=== PATIENT | female | born 1935 | race African-American/Black ===

== ENCOUNTER 2018-02-26 23:34 | Inpatient (IN) | payer MEDICARE ==
[2018-02-27] MEDS ORDERED: NORMAL SALINE 1000 ML 1,000 ML IV PRN (00:45)
[2018-02-27 01:31] LABS: ABSOLUTE EOSINOPHILS # (AUTO) 0.1 10^3/uL (0.0-0.6); ABSOLUTE LYMPHOCYTES (AUTO) 2.4 10^3/uL (0.5-4.7); ABSOLUTE MONOCYTES (AUTO) 0.5 10^3/uL (0.1-1.4); ABSOLUTE NEUT (AUTO) 2.9 10^3/uL (1.7-8.2); BASOPHILS % (AUTO) 0.7 % (0-2); EOSINOPHILS % (AUTO) 1.1 % (0-6); HEMATOCRIT 23.8 % (36.0-47.0); LYMPHOCYTES % (AUTO) 40.3 % (13-45); MEAN CORPUSCULAR HEMOGLOBIN 29.8 pg (27.0-33.4); MEAN CORPUSCULAR HGB CONC 33.2 g/dL (32.0-36.0); MEAN CORPUSCULAR VOLUME 90 fl (80-97); MONOCYTES % (AUTO) 8.9 % (3-13); PLATELET COUNT 101 10^3/uL (150-450); RED BLOOD COUNT 2.65 10^6/uL (3.72-5.28); RED CELL DISTRIBUTION WIDTH 17.7 % (11.5-14.0); TOTAL CELLS COUNTED % (AUTO) 100 %; WHITE BLOOD COUNT 5.9 10^3/uL (4.0-10.5)
[2018-02-27 01:33] LABS: HEMOGLOBIN 7.9 g/dL (12.0-15.5)
[2018-02-27 01:35] LABS: APPEARANCE,URINE SLIGHTLY-CLOUDY; BILIRUBIN,URINE NEGATIVE (NEGATIVE); COLOR,URINE YELLOW; GLUCOSE, URINE NEGATIVE (NEGATIVE); KETONES,URINE NEGATIVE (NEGATIVE); LEUKOCYTE ESTERASE,URINE SMALL (NEGATIVE); NITRITE,URINE NEGATIVE (NEGATIVE); PROTEIN,URINE NEGATIVE (NEGATIVE); URINE SPECIFIC GRAVITY 1.006; UROBILINOGEN,URINE NEGATIVE mg/dL (<2.0)
[2018-02-27 01:44] LABS: ALANINE AMINOTRANSFERASE 97 U/L (9-52); ALBUMIN 2.8 g/dL (3.5-5.0); ALKALINE PHOSPHATASE 125 U/L (38-126); ANION GAP 11 (5-19); ASPARTATE AMINO TRANSFERASE 176 U/L (14-36); BILIRUBIN,DIRECT 0.8 mg/dL (0.0-0.4); BILIRUBIN,TOTAL 1.2 mg/dL (0.2-1.3); BLOOD UREA NITROGEN 14 mg/dL (7-20); CALCIUM 8.3 mg/dL (8.4-10.2); CARBON DIOXIDE 24 mmol/L (22-30); CHLORIDE 103 mmol/L (98-107); GLUCOSE 142 mg/dL (75-110); POTASSIUM 3.6 mmol/L (3.6-5.0); SODIUM 138.2 mmol/L (137-145); TOTAL PROTEIN 6.9 g/dL (6.3-8.2)
[2018-02-27] MEDS ORDERED: FAMOTIDINE INJ/PF 20 MG/2 ML SDV IV ONE (01:56)
[2018-02-27] MEDS ORDERED: PANTOPRAZOLE SODIUM 40 MG VIAL IV ONE (01:56)
[2018-02-27] MEDS ORDERED: PANTOPRAZOLE SODIUM 40 MG VIAL IV PRN (01:57)
[2018-02-27 02:41] LABS: FREE T4 (FREE THYROXINE) 1.53 ng/dL (0.78-2.19)
[2018-02-27 02:46] LABS: INTERNATIONAL RATION (INR) 1.27; PROTHROMBIN TIME 16.6 SEC (11.4-15.4)
[2018-02-27 02:55] LABS: THYROID STIMULATING HORMONE 3.69 uIU/mL (0.47-4.68)
[2018-02-27] MEDS ORDERED: NORMAL SALINE 250 ML IV PRN ×2 (03:01→03:03)
--- NOTE | 2018-02-27 03:05 | ER Document Report ---
ED General - General Chief Complaint: Near Syncope Stated Complaint: SYNCOPE Time Seen by Provider: 02/27/18 00:29 Mode of Arrival: Ambulatory Information source: Patient, Relative TRAVEL OUTSIDE OF THE [place] IN LAST 30 DAYS: No - HPI Notes: Patient is a 83-year-old female presents to the emergency department with report that she has had a decreased appetite for the last 2 weeks and reports some intermittent abdominal pain episodes and states that she is taken Pepto- Bismol with improvement. She reports that 4 days ago she had vomiting and diarrhea and questions having some hematemesis with vomiting. Since that time she has not vomited and denies any further diarrhea but has noted she is felt faint and lightheaded, especially with ambulation. The patient reports no chest pain or difficulty breathing. The patient denies any focal numbness or weakness or paresthesia. The patient reports no abnormal bleeding or bruising otherwise. The patient is not on anticoagulants. Currently, the patient denies any abdominal pain. - Related Data Allergies/Adverse Reactions: No Known Allergies Allergy (Verified 12/15/14 17:19) Past Medical History - General Information source: Patient - Social History Smoking Status: Never Smoker Frequency of alcohol use: None Drug Abuse: None Lives with: Family Family History: Reviewed & Not Pertinent Patient has suicidal ideation: No Patient has homicidal ideation: No - Past Medical History Cardiac Medical History: Reports: Hx Hypertension Endocrine Medical History: Reports: Hx Diabetes Mellitus Type 2 Renal/ Medical History: Denies: Hx Peritoneal Dialysis - Immunizations Hx Diphtheria, Pertussis, Tetanus Vaccination: No Review of Systems - Review of Systems -: Yes All other systems reviewed and negative Physical Exam - Vital signs Vitals: Temp Pulse Resp BP Pulse Ox 98.5 F 102 H 16 132/69 H 99 02/26/18 23:34 02/26/18 23:34 02/26/18 23:34 02/26/18 23:34 02/26/18 23:34 - Notes Notes: PHYSICAL EXAMINATION: GENERAL: Well-appearing, well-nourished and in no acute distress. HEAD: Atraumatic, normocephalic. EYES: Pupils equal round and reactive to light, extraocular movements intact, conjunctiva are normal. ENT: Nares patent, oropharynx clear without exudates. Moist mucous membranes. NECK: Normal range of motion, supple without lymphadenopathy LUNGS: Breath sounds clear to auscultation bilaterally and equal. No wheezes rales or rhonchi. HEART: Regular rate and rhythm without murmurs ABDOMEN: Soft, nontender, nondistended abdomen. No guarding, no rebound. No masses appreciated. Female : deferred Musculoskeletal: Normal range of motion, no pitting or edema. No cyanosis. NEUROLOGICAL: Cranial nerves grossly intact. Normal speech, normal gait. Normal sensory, motor exams. No cerebellar ataxia. PSYCH: Normal mood, normal affect. SKIN: Warm, Dry, normal turgor, no rashes or lesions noted. Rectal slight bleeding melanotic although the stool is well-formed. Patient's flash heme positive. Course - Re-evaluation Re-evalutation: 02/27/18 03:08 Patient reported her last colonoscopy was 2 years ago and she thinks it was negative. The patient consented to transfusion of blood after discussion of risks alternatives and benefits. Repeat abdominal exam was nontender. Patient initially was given 1 L normal saline after arrival until hemoglobin came back at 7.9. There is a normal BUN to creatinine ratio with well-formed stool, and it is hopeful that the patient's GI bleed is now slowed down. Discussion was undertaken with the patient and her family and they were in agreement with admission for further evaluation and care. Discussion was undertaken with Dr. Moreau and he agreed to admit the patient. - Vital Signs Vital signs: Temp Pulse Resp BP Pulse Ox 98.1 F 102 H 11 L 149/67 H 100 02/27/18 02:51 02/26/18 23:34 02/27/18 02:17 02/27/18 02:17 02/27/18 02:17 - Laboratory Result Diagrams: 02/27/18 01:14 02/27/18 01:14 Laboratory results interpreted by me: 02/27/18 02/27/18 02/27/18 01:14 01:14 01:14 RBC 2.65 L Hgb 7.9 L Hct 23.8 L RDW 17.7 H Plt Count 101 L PT Glucose 142 H Calcium 8.3 L Direct Bilirubin 0.8 H AST 176 H ALT 97 H Albumin 2.8 L Ur Leukocyte Esterase SMALL H 02/27/18 02:18 RBC Hgb Hct RDW Plt Count PT 16.6 H Glucose Calcium Direct Bilirubin AST ALT Albumin Ur Leukocyte Esterase Critical Care Note - Critical Care Note Total time excluding time spent on procedures (mins): 33 Discharge - Discharge Clinical Impression: Near syncope GI bleed Qualifiers: GI bleed type/associated pathology: unspecified gastrointestinal hemorrhage type Qualified Code(s): K92.2 - Gastrointestinal hemorrhage, unspecified Condition: Fair Disposition: ADMITTED INPATIENT Admitting Provider: Lucy Unit Admitted: IMCU Referrals: KINZA MOREAU MD [Primary Care Provider] - Follow up as needed
[2018-02-27] MEDS ORDERED: DEXTROSE 40% GEL 15 GM TUBE PO PRN ×2 (05:07)
[2018-02-27] MEDS ORDERED: DEXTROSE 50%-WATER 25 GM/50 ML DISP.SYRIN IV PRN ×2 (05:07)
[2018-02-27] MEDS ORDERED: GLUCAGON,HUMAN RECOMB 1 MG INJ SUBCUT PRN (05:07)
[2018-02-27] MEDS ORDERED: ONDANSETRON HCL INJ/PF 4 MG/2 ML SDV ONE (06:37)
[2018-02-27] MEDS ORDERED: ONDANSETRON HCL INJ/PF 4 MG/2 ML SDV IV PRN ×2 (07:58→19:44)
--- NOTE | 2018-02-27 08:09 | PDOC H&P ---
History of Present Illness Admission Date/PCP: 02/27/18 03:15 KINZA MOREAU MD Patient complains of: hematemesis History of Present Illness: LILIA FRANCE is a 83 year old female with diabetes gout and hepatitis C who presented a month ago with fatigue and barros. Hct was 32. Aspirin was stopped. She has had 2w of intermittant abdominal pain. 6d ago she had hemetemesis with diarrhea. Now hct24. 1y ago she had colonoscopy. Past Medical History Cardiac Medical History: Reports: Hypertension Pulmonary Medical History: Reports: None EENT Medical History: Reports: None Neurological Medical History: Reports: None Endocrine Medical History: Reports: Diabetes Mellitus Type 2, Obesity Renal/ Medical History: Reports: None Malignancy Medical History: Reports: None GI Medical History: Reports: Hepatitis Musculoskeltal Medical History: Reports: Gout Skin Medical History: Reports: None Psychiatric Medical History: Reports: None Denies: Depression Traumatic Medical History: Reports: None Hematology: Reports: None Infectious Medical History: Reports: Hepatitis C Past Surgical History Past Surgical History: Reports: Other - R cataract Social History Information Source: Office Lives with: Family Smoking Status: Never Smoker Frequency of Alcohol Use: None Hx Recreational Drug Use: No Drugs: None Hx Prescription Drug Abuse: No - Advance Directive Resuscitation Status: Full Code Family History Family History: DM, Malignancy Parental Family History Reviewed: Yes Children Family History Reviewed: Yes Sibling(s) Family History Reviewed.: Yes Medication/Allergy Home Medications: Amlodipine Besylate 5 mg PO DAILY 12/15/14 Allergies/Adverse Reactions: No Known Allergies Allergy (Verified 12/15/14 17:19) Review of Systems Constitutional: PRESENT: anorexia, fatigue. ABSENT: fever(s), headache(s), weight loss Nose, Mouth, and Throat: ABSENT: sore throat Cardiovascular: PRESENT: dyspnea on exertion. ABSENT: chest pain, orthropnea Respiratory: ABSENT: cough Gastrointestinal: PRESENT: abdominal pain, diarrhea, hematemesis, vomiting. ABSENT: coffee ground emesis, constipation, heartburn, hematochezia, melena Genitourinary: ABSENT: dysuria, hematuria Integumentary: ABSENT: rash Physical Exam Vital Signs: Temp Pulse Resp BP Pulse Ox 98.6 F 90 17 145/72 H 100 02/27/18 04:44 02/27/18 04:44 02/27/18 04:44 02/27/18 04:44 02/27/18 04:44 Intake & Output 02/25/18 02/26/18 02/27/18 07:59 07:59 07:59 Weight 176 lb 9.444 oz General appearance: PRESENT: no acute distress Mouth exam: PRESENT: moist, neck supple, tongue midline Neck exam: ABSENT: lymphadenopathy, tenderness, thyromegaly, tracheal deviation Respiratory exam: PRESENT: clear to auscultation antonia Cardiovascular exam: ABSENT: diastolic murmur, irregular rhythm, systolic murmur GI/Abdominal exam: ABSENT: mass, organolmegaly, tenderness Extremities exam: ABSENT: pedal edema Neurological exam: PRESENT: oriented to person, oriented to place, oriented to time, oriented to situation Psychiatric exam: PRESENT: appropriate affect Results Laboratory Results: 02/27/18 03:20 Blood Type A POSITIVE Antibody Screen NEGATIVE Abnormal - 24 hr 02/27/18 02/27/18 02/27/18 01:14 01:14 01:14 RBC 2.65 L Hgb 7.9 L Hct 23.8 L RDW 17.7 H Plt Count 101 L PT Glucose 142 H Calcium 8.3 L Direct Bilirubin 0.8 H AST 176 H ALT 97 H Albumin 2.8 L Ur Leukocyte Esterase SMALL H Crossmatch 02/27/18 02/27/18 02:18 03:20 RBC Hgb Hct RDW Plt Count PT 16.6 H Glucose Calcium Direct Bilirubin AST ALT Albumin Ur Leukocyte Esterase Crossmatch See Detail Assessment & Plan - Diagnosis (1) Upper GI bleed Is this a current diagnosis for this admission?: Yes Plan: Patoprazole drip. 2u prbc. Endoscopy. (2) Type 2 diabetes mellitus without complications Qualifiers: Diabetes mellitus group home insulin use: without bartender helper use Qualified Code(s): E11.9 - Type 2 diabetes mellitus without complications Is this a current diagnosis for this admission?: Yes Plan: Last month A1c was 5.7. I stopped metformin. (3) Idiopathic chronic gout of multiple sites without tophus Is this a current diagnosis for this admission?: Yes Plan: off allopurinol (4) Essential (primary) hypertension Is this a current diagnosis for this admission?: Yes (5) Chronic hepatitis C Qualifiers: Hepatic coma status: without hepatic coma Qualified Code(s): B18.2 - Chronic viral hepatitis C Is this a current diagnosis for this admission?: Yes - Inpatient Certification Based on my medical assessment, after consideration of the patient's comorbidities, presenting symptoms, or acuity I expect that the services needed warrant INPATIENT care.: Yes I certify that my determination is in accordance with my understanding of Medicare's requirements for reasonable and necessary INPATIENT services [42 CFR 412.3e].: Yes Medical Necessity: Failure to Improve With Outpatient Therapy, Significant Comorbidiites Make Outpatient Treatment Too Risky, Need Close Monitoring Due to Risk of Patient Decompensation, Need For IV Fluids, Need For Continuous Telemetry Monitoring, Need for Surgery, Risk of Complication if Not Cared For in Hospital, Risk of Diagnosis Which Will Require Inpatient Eval/Care/Monitoring
--- NOTE | 2018-02-27 08:17 | EKG REPORT ---
SEVERITY:- OTHERWISE NORMAL ECG - SINUS RHYTHM BORDERLINE LEFT AXIS DEVIATION : Confirmed by: Clarita Farmer MD 27-Feb-2018 08:16:01
[2018-02-27] MEDS ORDERED: BISACODYL 5 MG TABEC PO ONE (08:37)
[2018-02-27] MEDS ORDERED: POLYETHYLENE GLYCOL 3350 POWDER 17 GM/1 PACKET PO ONE (09:30)
--- NOTE | 2018-02-27 10:25 | PDOC CONSULTATION ---
Consultation Consult Date: 02/27/18 Consult reason:: 1. Anemia. 2. History of hematemesis. History of Present Illness Admission Date/PCP: 02/27/18 03:15 KINZA MOREAU MD History of Present Illness: LILIA FRANCE is a 83 year old female with new onset anemia, and a recent history of hematemesis and crampy abdominal pain approximately 7-10 days ago. The patient reports dark blood with vomiting. The patient denies any abdominal pain at present. She does report weakness, orthostasis, dizziness, and malaise. The patient also reports dark, melanotic stools and occasional diarrhea. Her last colonoscopy was approximately 2 years ago, and was normal. Nothing makes her symptoms better. Standing up quickly makes her dizziness and weakness worse. The patient has never had an EGD. The patient denies NSAIDs, steroids, alcohol, nicotine, or excessive caffeine use. Past Medical History Cardiac Medical History: Reports: Hypertension Pulmonary Medical History: Reports: None EENT Medical History: Reports: None Neurological Medical History: Reports: None Endocrine Medical History: Reports: Diabetes Mellitus Type 2, Obesity Renal/ Medical History: Reports: None Malignancy Medical History: Reports: None GI Medical History: Reports: Hepatitis Musculoskeltal Medical History: Reports: Gout Skin Medical History: Reports: None Psychiatric Medical History: Reports: None Denies: Depression Traumatic Medical History: Reports: None Hematology: Reports: None Infectious Medical History: Reports: Hepatitis C Past Surgical History Past Surgical History: Reports: None, Other - R cataract, colonoscopy 2 years ago Social History Lives with: Family Smoking Status: Never Smoker Frequency of Alcohol Use: None Hx Recreational Drug Use: No Drugs: None Hx Prescription Drug Abuse: No - Advance Directive Resuscitation Status: Full Code Family History Family History: DM, Malignancy Parental Family History Reviewed: Yes Children Family History Reviewed: Yes Sibling(s) Family History Reviewed.: Yes Medication/Allergy Home Medications: Amlodipine Besylate 5 mg PO DAILY 12/15/14 Calcium Carbonate/Vitamin D3 [Calcium 600 + Vit D 400 Tablet] 1 tab PO DAILY Multivitamin [Daily Multiple Vitamin] 1 each PO DAILY 02/27/18 Allergies/Adverse Reactions: No Known Allergies Allergy (Verified 12/15/14 17:19) Review of Systems Constitutional: PRESENT: anorexia, weakness Eyes: ABSENT: visual disturbances Ears: ABSENT: hearing changes Nose, Mouth, and Throat: ABSENT: sore throat Cardiovascular: ABSENT: chest pain Respiratory: ABSENT: cough, dyspnea Gastrointestinal: PRESENT: abdominal pain - Intermittent, now resolved., diarrhea - Intermittent, hematemesis - 7-10 days ago, nausea, vomiting Musculoskeletal: ABSENT: back pain Integumentary: ABSENT: pruritus, rash Neurological: PRESENT: dizziness, weakness, other - Orthostasis Psychiatric: ABSENT: anxiety, depression Hematologic/Lymphatic: ABSENT: easy bleeding, easy bruising Physical Exam Vital Signs: Temp Pulse Resp BP Pulse Ox 97.9 F 91 16 129/60 H 100 02/27/18 08:45 02/27/18 08:45 02/27/18 08:45 02/27/18 08:45 02/27/18 08:45 Intake & Output 02/26/18 02/27/18 02/28/18 06:59 06:59 06:59 Intake Total 1000 330 Balance 1000 330 Weight 80.1 kg General appearance: PRESENT: no acute distress, thin, other - Elderly Head exam: PRESENT: atraumatic, normocephalic Eye exam: PRESENT: EOMI, PERRLA. ABSENT: scleral icterus Mouth exam: ABSENT: neck supple Neck exam: ABSENT: meningismus, tenderness, thyromegaly, tracheal deviation Respiratory exam: PRESENT: clear to auscultation antonia, unlabored. ABSENT: chest wall tenderness, tachypnea, wheezes Cardiovascular exam: PRESENT: RRR Pulses: PRESENT: normal radial pulses GI/Abdominal exam: PRESENT: soft. ABSENT: distended, firm, guarding, tenderness Extremities exam: ABSENT: clubbing Musculoskeletal exam: ABSENT: deformity Neurological exam: PRESENT: alert, awake, oriented to person, oriented to place , oriented to time, oriented to situation, CN II-XII grossly intact Psychiatric exam: ABSENT: agitated, anxious, depressed Focused psych exam: ABSENT: delusional Skin exam: ABSENT: cyanosis, erythema, jaundice Results Laboratory Results: 02/27/18 03:20 Blood Type A POSITIVE Antibody Screen NEGATIVE Assessment & Plan - Diagnosis (1) Anemia Qualifiers: Anemia type: unspecified type Qualified Code(s): D64.9 - Anemia, unspecified Is this a current diagnosis for this admission?: Yes (2) GI bleed Qualifiers: GI bleed type/associated pathology: unspecified gastrointestinal hemorrhage type Qualified Code(s): K92.2 - Gastrointestinal hemorrhage, unspecified Is this a current diagnosis for this admission?: Yes - Plan Summary Plan Summary: There is an 83-year-old female with anemia and a history of abdominal pain and hematemesis. The patient has never had an EGD. Her last colonoscopy was 2 years ago per her report. I have discussed her care with her and her granddaughter. I have discussed EGD plus or minus colonoscopy. They prefer to have a EGD and colonoscopy performed today. The patient is currently receiving blood products. I will order her bowel prep and performed her colonoscopy and EGD this evening. Risks/benefits discussed, infomred consent obtained, and all questions answered.
[2018-02-27] MEDS ORDERED: EPINEPHRINE INJ 1 MG/10 ML DISP.SYRIN ONE (15:16)
[2018-02-27 16:42] LABS: ABSOLUTE LYMPHOCYTES (AUTO) 1.3 10^3/uL (0.5-4.7); ABSOLUTE MONOCYTES (AUTO) 0.4 10^3/uL (0.1-1.4); ABSOLUTE NEUT (AUTO) 4.1 10^3/uL (1.7-8.2); BASOPHILS % (AUTO) 0.3 % (0-2); EOSINOPHILS % (AUTO) 0.4 % (0-6); HEMATOCRIT 29.8 % (36.0-47.0); MEAN CORPUSCULAR VOLUME 89 fl (80-97); MONOCYTES % (AUTO) 6.4 % (3-13); RED BLOOD COUNT 3.36 10^6/uL (3.72-5.28); RED CELL DISTRIBUTION WIDTH 16.3 % (11.5-14.0); SEGMENTED NEUTROPHILS % (AUTO) 70.9 % (42-78); TOTAL CELLS COUNTED % (AUTO) 100 %; WHITE BLOOD COUNT 5.8 10^3/uL (4.0-10.5)
[2018-02-27 17:14] LABS: HEMOGLOBIN 10.4 g/dL (12.0-15.5); PLATELET COUNT 78 10^3/uL (150-450)
[2018-02-27] MEDS: PANTOPRAZOLE SODIUM 40 MG VIAL IV SCH (17:33)
[2018-02-27] MEDS ORDERED: LIDOCAINE 2% INJ-PF (20 MG/ML) 10 ML AMPUL ONE (19:23)
[2018-02-27] MEDS ORDERED: FENTANYL CITRATE INJ/PF 100 MCG/2 ML AMPUL ONE (19:23)
[2018-02-27] MEDS ORDERED: PROPOFOL INJ 200 MG/20 ML VIAL IV ONE (19:24)
[2018-02-27] MEDS ORDERED: MIDAZOLAM 2 MG/2 ML INJ ONE (19:24)
[2018-02-27] MEDS ORDERED: FENTANYL CITRATE INJ/PF 100 MCG/2 ML AMPUL IV PRN ×3 (19:44)
[2018-02-27] MEDS ORDERED: PROMETHAZINE HCL INJ 25 MG/1 ML VIAL IV PRN ×2 (19:44)
[2018-02-27] MEDS ORDERED: DIPHENHYDRAMINE HCL 50 MG/ML VIAL IV PRN (19:44)
[2018-02-27] MEDS ORDERED: MEPERIDINE HCL/PF INJ 25 MG/1 ML DISP.SYRIN IV PRN (19:44)
--- NOTE | 2018-02-27 20:26 | Operative Report ---
Nonrecallable Operative Report DATE OF SURGERY: 02/27/18 PREOPERATIVE DIAGNOSIS: GI bleeding. POSTOPERATIVE DIAGNOSIS: 1. No evidence of active GI bleeding in the stomach or colon. 2. Large gastric varices. 3. Esophageal varices. 4. Mild gastritis. OPERATION: 1. EGD with antral biopsy. 2. No evidence of bleeding on colonoscopy. SURGEON: VIRAJ ENRIQUE ANESTHESIA: LMAC TISSUE REMOVED OR ALTERED: Antral biopsy COMPLICATIONS: None apparent ESTIMATED BLOOD LOSS: Minimal PROCEDURE: Drains/implants: None. Procedure in detail: After informed consent was obtained, the patient was brought into the operating room and laid in the left lateral decubitus position. The endoscope was passed down the oropharynx, down the esophagus, and into the stomach. The stomach was insufflated with air. Scope was passed through the pylorus and into the first and second portions of the duodenum. The duodenum appeared normal. There is no sign of new or old blood in the stomach. The scope was pulled back into the antrum where mild gastritis was identified. A biopsy was taken in the antrum to rule out H. pylori. A retroflexion maneuver was then performed in the gastric body. There were noted to be large gastric varices in the cardia of the stomach. The varices had no evidence of active bleeding, or old clots. The scope was pulled up into the distal esophagus where more varices were identified. The esophageal varices extended from the distal esophagus up to approximately the mid esophagus. There was no active bleeding or evidence of old bleeding in the esophagus. Scope was removed from the patient's oropharynx, and this portion of the procedure was concluded. The colonoscope was then inserted into the rectum. It was passed up the rectum , sigmoid colon, descending colon, across the transverse colon, down the ascending colon, and into the cecum. The ileocecal valve and appendiceal orifice were identified. The scope was then withdrawn, circumferentially noting the mucosa. The prep was fair. Multiple washings and sections were acquired in order to visualize the entirety of the colon. The scope was removed past the ascending colon, transverse colon, down the descending colon, sigmoid colon, and into the rectum. There was no old blood or active bleeding identified. There were no clots or large diverticula noted. There were no polyps identified, strictures, or large tumors. Retroflexion maneuver was performed in the rectum noting small internal hemorrhoids. There was no active bleeding noted from her hemorrhoids. The scope was straightened, air was suctioned from the rectum, the scope was removed, and the procedure was concluded. All sponge, instrument, and needle counts were correct x2. Condition: Fair.
--- NOTE | 2018-02-27 20:28 | Progress Note ---
Provider Note Provider Note: Patient with nonbleeding gastric and esophageal varices noted. Recommend close follow-up with gastroenterology for management of her varices. I will see the patient again on an as-needed basis. Please renotify with any questions or concerns.
[2018-02-28 06:08] LABS: ABSOLUTE EOSINOPHILS # (AUTO) 0.1 10^3/uL (0.0-0.6); ABSOLUTE LYMPHOCYTES (AUTO) 1.6 10^3/uL (0.5-4.7); ABSOLUTE MONOCYTES (AUTO) 0.3 10^3/uL (0.1-1.4); ABSOLUTE NEUT (AUTO) 1.9 10^3/uL (1.7-8.2); BASOPHILS % (AUTO) 0.4 % (0-2); EOSINOPHILS % (AUTO) 1.4 % (0-6); HEMATOCRIT 26.4 % (36.0-47.0); HEMOGLOBIN 9.1 g/dL (12.0-15.5); LYMPHOCYTES % (AUTO) 40.9 % (13-45); MEAN CORPUSCULAR HEMOGLOBIN 30.5 pg (27.0-33.4); MEAN CORPUSCULAR HGB CONC 34.3 g/dL (32.0-36.0); MEAN CORPUSCULAR VOLUME 89 fl (80-97); MONOCYTES % (AUTO) 7.9 % (3-13); RED BLOOD COUNT 2.97 10^6/uL (3.72-5.28); RED CELL DISTRIBUTION WIDTH 16.4 % (11.5-14.0); SEGMENTED NEUTROPHILS % (AUTO) 49.4 % (42-78); TOTAL CELLS COUNTED % (AUTO) 100 %; WHITE BLOOD COUNT 3.9 10^3/uL (4.0-10.5)
[2018-02-28 06:28] LABS: PLATELET COUNT 63 10^3/uL (150-450)
[2018-02-28 06:51] LABS: ABSOLUTE RETICS # 0.134 10^6/uL (0.028-0.122); RETICULOCYTE COUNT (AUTO) 4.57 % (0.66-2.85)
[2018-02-28 06:52] LABS: IRON(TIBC) 21.5 ug/dL (37-170)
[2018-02-28] MEDS ORDERED: NORMAL SALINE 250 ML IV PRN (07:14)
[2018-02-28 07:59] LABS: FOLATE > 20.00 ng/mL (>2.76)
--- NOTE | 2018-02-28 08:48 | PDOC PROGRESS REPORT ---
Subjective Progress Note for:: 02/28/18 Subjective:: no dyspnea or pain Reason For Visit: UGIB Physical Exam Vital Signs: Temp Pulse Resp BP Pulse Ox 98.6 F 83 22 H 137/62 H 100 02/28/18 08:28 02/28/18 08:28 02/28/18 08:28 02/28/18 08:28 02/28/18 08:28 Intake & Output 02/27/18 02/28/18 03/01/18 07:59 07:59 07:59 Intake Total 1000 3210 Output Total 0 Balance 1000 3210 Weight 176 lb 9.444 oz 175 lb 7.807 oz General appearance: PRESENT: no acute distress Respiratory exam: PRESENT: clear to auscultation antonia Cardiovascular exam: ABSENT: diastolic murmur, irregular rhythm, systolic murmur GI/Abdominal exam: ABSENT: mass, organolmegaly, tenderness Extremities exam: PRESENT: pedal edema - trace Neurological exam: PRESENT: oriented to situation Psychiatric exam: PRESENT: appropriate affect Results Laboratory Results: 02/28/18 05:26 02/27/18 02/27/18 02/28/18 03:20 16:30 05:26 WBC 5.8 3.9 L RBC 3.36 L 2.97 L Hgb 10.4 L D 9.1 L Hct 29.8 L 26.4 L MCV 89 89 MCH 31.0 30.5 MCHC 35.0 34.3 RDW 16.3 H 16.4 H Plt Count 78 L 63 L Seg Neutrophils % 70.9 49.4 Lymphocytes % 22.0 40.9 Monocytes % 6.4 7.9 Eosinophils % 0.4 1.4 Basophils % 0.3 0.4 Absolute Neutrophils 4.1 1.9 Absolute Lymphocytes 1.3 1.6 Absolute Monocytes 0.4 0.3 Absolute Eosinophils 0.0 0.1 Absolute Basophils 0.0 0.0 Retic Count (auto) Absolute Retic Iron TIBC % Saturation Ferritin Vitamin B12 Folate Blood Type A POSITIVE Antibody Screen NEGATIVE 02/28/18 02/28/18 05:26 05:26 WBC RBC Hgb Hct MCV MCH MCHC RDW Plt Count Seg Neutrophils % Lymphocytes % Monocytes % Eosinophils % Basophils % Absolute Neutrophils Absolute Lymphocytes Absolute Monocytes Absolute Eosinophils Absolute Basophils Retic Count (auto) 4.57 H Absolute Retic 0.134 H Iron 21.5 L TIBC 286 % Saturation 8 Ferritin 72.90 Vitamin B12 832.0 Folate > 20.00 Blood Type Antibody Screen Assessment & Plan - Diagnosis (1) Chronic hepatitis C Qualifiers: Hepatic coma status: without hepatic coma Qualified Code(s): B18.2 - Chronic viral hepatitis C Is this a current diagnosis for this admission?: Yes Plan: US for suspected cirrhosis. (2) Upper GI bleed Is this a current diagnosis for this admission?: Yes Plan: Bscope only varices. Hct 24 30 26. 3 more prbc. Propranolol 20bid. Iron low. Ibc ferritin ok. Venofer. (3) Type 2 diabetes mellitus without complications Qualifiers: Diabetes mellitus termite treater insulin use: without skilled nursing use Qualified Code(s): E11.9 - Type 2 diabetes mellitus without complications Is this a current diagnosis for this admission?: Yes (4) Idiopathic chronic gout of multiple sites without tophus Is this a current diagnosis for this admission?: Yes (5) Essential (primary) hypertension Is this a current diagnosis for this admission?: Yes (6) Varices of esophagus determined by endoscopy Is this a current diagnosis for this admission?: Yes (7) Hepatic fibrosis Is this a current diagnosis for this admission?: Yes - Inpatient Certification Medical Necessity: Failure to Improve With Outpatient Therapy, Significant Comorbidiites Make Outpatient Treatment Too Risky, Need Close Monitoring Due to Risk of Patient Decompensation, Need For IV Fluids, Need For Continuous Telemetry Monitoring, Risk of Complication if Not Cared For in Hospital, Risk of Diagnosis Which Will Require Inpatient Eval/Care/Monitoring
[2018-02-28] MEDS ORDERED: IRON SUCROSE COMPLEX INJ/PF 100 MG/5 ML SDV IV ONE (09:05)
[2018-02-28] MEDS: FERROUS SULFATE 325 MG TABLET PO SCH (10:52)
[2018-02-28] MEDS: PROPRANOLOL HCL 20 MG TABLET PO SCH ×2 (10:52→21:30)
[2018-02-28] MEDS: PANTOPRAZOLE SODIUM 40 MG VIAL IV SCH ×2 (10:52→18:07)
[2018-02-28] MEDS ORDERED: IRON SUCROSE COMPLEX 500 MG in NORMAL SALINE 250 ML IV ONE (11:00)
--- NOTE | 2018-02-28 13:42 | RADIOLOGY REPORT (SQ) ---
EXAM DESCRIPTION: U/S ABDOMEN COMPLETE W/DOPPLER COMPLETED DATE/TIME: 02/28/2018 12:48 pm REASON FOR STUDY: variceal bleed from hepatitis C COMPARISON: None. TECHNIQUE: Dynamic and static grayscale images acquired of the abdomen and recorded on PACS. Max granda selected color Doppler and spectral images recorded. LIMITATIONS: None. FINDINGS: PANCREAS: No masses. Visualized pancreatic duct normal caliber. LIVER: Increased echogenicity. Slightly nodular contour. No definable mass. LIVER VASCULATURE: Normal directional flow of the main portal vein and hepatic veins. GALLBLADDER: No stones. Normal wall thickness. No pericholecystic fluid. ULTRASOUND-DETECTED LYONS'S SIGN: Negative. INTRAHEPATIC DUCTS AND COMMON DUCT: CBD and intrahepatic ducts normal caliber. No filling defects. INFERIOR VENA CAVA: Patent. AORTA: No aneurysm proximally. The mid and distal aorta were not well seen. RIGHT KIDNEY: Normal size, 9.2 cm. Normal echogenicity. No solid or suspicious masses. No hydr onephrosis. No calcifications. LEFT KIDNEY: Normal size, 9.1 Cm. Normal echogenicity. No solid or suspicious masses. No hydro nephrosis. No calcifications. SPLEEN: Normal size, 9.4 cm. PERITONEAL AND PLEURAL SPACES: No ascites or effusions. OTHER: No other significant finding. IMPRESSION: Fatty infiltration of the liver with a slightly nodular contour. No gallstones. No wang everardo dilatation. TECHNICAL DOCUMENTATION: JOB ID: [id number] [email or web address]- All Rights Reserved Reading location - IP/workstation name: [email or web address]
[2018-03-01 05:38] LABS: ABSOLUTE EOSINOPHILS # (AUTO) 0.1 10^3/uL (0.0-0.6); ABSOLUTE LYMPHOCYTES (AUTO) 1.3 10^3/uL (0.5-4.7); ABSOLUTE MONOCYTES (AUTO) 0.4 10^3/uL (0.1-1.4); ABSOLUTE NEUT (AUTO) 2.3 10^3/uL (1.7-8.2); BASOPHILS % (AUTO) 0.4 % (0-2); EOSINOPHILS % (AUTO) 1.6 % (0-6); HEMATOCRIT 37.7 % (36.0-47.0); LYMPHOCYTES % (AUTO) 31.3 % (13-45); MEAN CORPUSCULAR HEMOGLOBIN 29.9 pg (27.0-33.4); MEAN CORPUSCULAR HGB CONC 34.5 g/dL (32.0-36.0); MEAN CORPUSCULAR VOLUME 87 fl (80-97); MONOCYTES % (AUTO) 9.8 % (3-13); RED BLOOD COUNT 4.36 10^6/uL (3.72-5.28); RED CELL DISTRIBUTION WIDTH 16.5 % (11.5-14.0); SEGMENTED NEUTROPHILS % (AUTO) 56.9 % (42-78); TOTAL CELLS COUNTED % (AUTO) 100 %; WHITE BLOOD COUNT 4.1 10^3/uL (4.0-10.5)
[2018-03-01 05:44] LABS: PLATELET COUNT 63 10^3/uL (150-450)
[2018-03-01] MEDS: LANSOPRAZOLE 30 MG TAB.RAP.DR PO SCH (06:45)
--- NOTE | 2018-03-01 08:44 | PDOC PROGRESS REPORT ---
Subjective Progress Note for:: 03/01/18 Subjective:: no nausea or pain Reason For Visit: UGIB Physical Exam Vital Signs: Temp Pulse Resp BP Pulse Ox 98.5 F 66 16 134/67 H 96 03/01/18 07:45 03/01/18 07:45 03/01/18 07:45 03/01/18 07:45 03/01/18 07:45 Intake & Output 02/28/18 03/01/18 03/02/18 07:59 07:59 07:59 Intake Total 3210 1900 Output Total 0 Balance 3210 1900 Weight 175 lb 7.807 oz 183 lb 3.266 oz General appearance: PRESENT: no acute distress Respiratory exam: PRESENT: clear to auscultation [place] Cardiovascular exam: ABSENT: diastolic murmur, irregular rhythm, systolic murmur GI/Abdominal exam: ABSENT: mass, organolmegaly, tenderness Extremities exam: ABSENT: pedal edema Neurological exam: PRESENT: oriented to situation Psychiatric exam: PRESENT: appropriate affect Results Laboratory Results: 03/01/18 05:11 02/27/18 03/01/18 03:20 05:11 WBC 4.1 RBC 4.36 Hgb 13.0 D Hct 37.7 MCV 87 MCH 29.9 MCHC 34.5 RDW 16.5 H Plt Count 63 L Seg Neutrophils % 56.9 Lymphocytes % 31.3 Monocytes % 9.8 Eosinophils % 1.6 Basophils % 0.4 Absolute Neutrophils 2.3 Absolute Lymphocytes 1.3 Absolute Monocytes 0.4 Absolute Eosinophils 0.1 Absolute Basophils 0.0 Blood Type A POSITIVE Antibody Screen NEGATIVE Impressions: Abdomen Ultrasound 02/28/18 00:00 IMPRESSION: Fatty infiltration of the liver with a slightly nodular contour. No gallstones. No ductal dilatation. Assessment & Plan - Diagnosis (1) Chronic hepatitis C Qualifiers: Hepatic coma status: without hepatic coma Qualified Code(s): B18.2 - Chronic viral hepatitis C Is this a current diagnosis for this admission?: Yes Plan: US fatty infiltration mild nodularity. Spleen no big. (2) Upper GI bleed Is this a current diagnosis for this admission?: Yes Plan: hct 38 after 5u prbc. BP up. Increase propranolol to 40mg bid. Advance diet. ? home in am if hct stable. (3) Type 2 diabetes mellitus without complications Qualifiers: Diabetes mellitus alf insulin use: without tank terminal gauger use Qualified Code(s): E11.9 - Type 2 diabetes mellitus without complications Is this a current diagnosis for this admission?: Yes (4) Idiopathic chronic gout of multiple sites without tophus Is this a current diagnosis for this admission?: Yes (5) Essential (primary) hypertension Is this a current diagnosis for this admission?: Yes (6) Varices of esophagus determined by endoscopy Is this a current diagnosis for this admission?: Yes (7) Hepatic fibrosis Is this a current diagnosis for this admission?: Yes - Inpatient Certification Medical Necessity: Significant Comorbidiites Make Outpatient Treatment Too Risky , Need Close Monitoring Due to Risk of Patient Decompensation, Need For Continuous Telemetry Monitoring, Risk of Complication if Not Cared For in Hospital, Risk of Diagnosis Which Will Require Inpatient Eval/Care/Monitoring
[2018-03-01] MEDS: PROPRANOLOL HCL 20 MG TABLET PO SCH ×2 (10:14→21:01)
[2018-03-01] MEDS: FERROUS SULFATE 325 MG TABLET PO SCH (10:14)
[2018-03-02] MEDS: LANSOPRAZOLE 30 MG TAB.RAP.DR PO SCH (05:28)
[2018-03-02 05:54] LABS: ABSOLUTE LYMPHOCYTES (AUTO) 1.5 10^3/uL (0.5-4.7); ABSOLUTE MONOCYTES (AUTO) 0.5 10^3/uL (0.1-1.4); ABSOLUTE NEUT (AUTO) 1.4 10^3/uL (1.7-8.2); BASOPHILS % (AUTO) 0.5 % (0-2); EOSINOPHILS % (AUTO) 1.3 % (0-6); HEMOGLOBIN 12.3 g/dL (12.0-15.5); LYMPHOCYTES % (AUTO) 43.7 % (13-45); MEAN CORPUSCULAR HEMOGLOBIN 29.9 pg (27.0-33.4); MEAN CORPUSCULAR HGB CONC 34.1 g/dL (32.0-36.0); MEAN CORPUSCULAR VOLUME 88 fl (80-97); RED BLOOD COUNT 4.11 10^6/uL (3.72-5.28); SEGMENTED NEUTROPHILS % (AUTO) 41.5 % (42-78); TOTAL CELLS COUNTED % (AUTO) 100 %; WHITE BLOOD COUNT 3.5 10^3/uL (4.0-10.5)
[2018-03-02 06:22] LABS: PLATELET COUNT 64 10^3/uL (150-450)
[2018-03-02] MEDS: PROPRANOLOL HCL 20 MG TABLET PO SCH (11:17)
[2018-03-02] MEDS: FERROUS SULFATE 325 MG TABLET PO SCH (11:17)
[2018-03-02 11:45] VITALS: BP 167/68
--- NOTE | 2018-03-02 13:41 | PDOC DISCHARGE SUMMARY ---
General - Admit/Disc Date/PCP Admission Date/Primary Care Provider: 02/27/18 03:15 KINZA MOREAU MD Discharge Date: 03/02/18 - Discharge Diagnosis (1) Chronic hepatitis C Is this a current diagnosis for this admission?: Yes (2) Upper GI bleed Is this a current diagnosis for this admission?: Yes (3) Type 2 diabetes mellitus without complications Is this a current diagnosis for this admission?: Yes (4) Idiopathic chronic gout of multiple sites without tophus Is this a current diagnosis for this admission?: Yes (5) Essential (primary) hypertension Is this a current diagnosis for this admission?: Yes (6) Varices of esophagus determined by endoscopy Is this a current diagnosis for this admission?: Yes (7) Hepatic fibrosis Is this a current diagnosis for this admission?: Yes (8) Thrombocytopenia Is this a current diagnosis for this admission?: Yes - Additional Information Resuscitation Status: Full Code Discharge Diet: Diabetic Discharge Activity: Activity As Tolerated Prescriptions: Ferrous Sulfate [Feosol 325 mg Tablet] 325 mg PO DAILY #90 tablet Metformin HCl 1,000 mg PO DAILY #90 tablet Pantoprazole Sodium 40 mg PO DAILY #90 tablet. Propranolol HCl [Inderal 40 mg Tablet] 40 mg PO BID #180 tablet Home Medications: Ferrous Sulfate [Feosol 325 mg Tablet] 325 mg PO DAILY #90 tablet 03/02/18 Metformin HCl 1,000 mg PO DAILY #90 tablet 03/02/18 Pantoprazole Sodium 40 mg PO DAILY #90 tablet. 03/02/18 Propranolol HCl [Inderal 40 mg Tablet] 40 mg PO BID #180 tablet 03/02/18 History of Present Illness Patient complains of: hematemesis History of Present Illness: LILIA FRANCE is a 83 year old female with diabetes gout and hepatitis C who presented a month ago with fatigue and barros. Hct was 32. Aspirin was stopped. She has had 2w of intermittant abdominal pain. 6d ago she had hemetemesis with diarrhea. Now hct24. 1y ago she had colonoscopy. Hospital Course Hospital Course: Hematocrit went from 24 to 38 to 36 with 5u prbc. Retic was 0.134. INR was 1.3 from hepatitis C. Platelets drifted down from 101 to 64. Endoscopy showed esophageal and gastric varices. Colonoscopy was normal. Iron was infused and pills were started. Propranolol was added. Platelet antibodies were ordered. Although A1c was 5.7 recently, sugars ran in low 100s. Metformin was resumed at lower dose. Physical Exam Vital Signs: Temp Pulse Resp BP Pulse Ox 98.5 F 63 16 129/57 H 96 03/02/18 03:20 03/02/18 03:20 03/02/18 03:20 03/02/18 03:20 03/02/18 03:20 Intake & Output 02/28/18 03/01/18 03/02/18 07:59 07:59 07:59 Intake Total 3210 1900 474 Output Total 0 Balance 3210 1900 474 Weight 175 lb 7.807 oz 183 lb 3.266 oz General appearance: PRESENT: no acute distress Respiratory exam: PRESENT: clear to auscultation [place] Cardiovascular exam: ABSENT: diastolic murmur, irregular rhythm, systolic murmur GI/Abdominal exam: ABSENT: mass, organolmegaly, tenderness Extremities exam: ABSENT: pedal edema Neurological exam: PRESENT: oriented to situation Psychiatric exam: PRESENT: appropriate affect Results Laboratory Results: 03/02/18 05:27 Labs- Last Values WBC 3.5 10^3/uL (4.0-10.5) L 03/02/18 05:27 RBC 4.11 10^6/uL (3.72-5.28) 03/02/18 05:27 Hgb 12.3 g/dL (12.0-15.5) 03/02/18 05:27 Hct 36.0 % (36.0-47.0) 03/02/18 05:27 MCV 88 fl (80-97) 03/02/18 05:27 MCH 29.9 pg (27.0-33.4) 03/02/18 05:27 MCHC 34.1 g/dL (32.0-36.0) 03/02/18 05:27 RDW 17.0 % (11.5-14.0) H 03/02/18 05:27 Plt Count 64 10^3/uL (150-450) L 03/02/18 05:27 Seg Neutrophils % 41.5 % (42-78) L 03/02/18 05:27 Lymphocytes % 43.7 % (13-45) 03/02/18 05:27 Monocytes % 13.0 % (3-13) 03/02/18 05:27 Eosinophils % 1.3 % (0-6) 03/02/18 05:27 Basophils % 0.5 % (0-2) 03/02/18 05:27 Absolute Neutrophils 1.4 10^3/uL (1.7-8.2) L 03/02/18 05:27 Absolute Lymphocytes 1.5 10^3/uL (0.5-4.7) 03/02/18 05:27 Absolute Monocytes 0.5 10^3/uL (0.1-1.4) 03/02/18 05:27 Absolute Eosinophils 0.0 10^3/uL (0.0-0.6) 03/02/18 05:27 Absolute Basophils 0.0 10^3/uL (0.0-0.2) 03/02/18 05:27 Retic Count (auto) 4.57 % (0.66-2.85) H 02/28/18 05:26 Absolute Retic 0.134 10^6/uL (0.028-0.122) H 02/28/18 05:26 PT 16.6 SEC (11.4-15.4) H 02/27/18 02:18 INR 1.27 02/27/18 02:18 Sodium 138.2 mmol/L (137-145) 02/27/18 01:14 Potassium 3.6 mmol/L (3.6-5.0) 02/27/18 01:14 Chloride 103 mmol/L (98-107) 02/27/18 01:14 Carbon Dioxide 24 mmol/L (22-30) 02/27/18 01:14 Anion Gap 11 (5-19) 02/27/18 01:14 BUN 14 mg/dL (7-20) 02/27/18 01:14 Creatinine 0.85 mg/dL (0.52-1.25) 02/27/18 01:14 Est GFR ( Amer) > 60 (>60) 02/27/18 01:14 Est GFR (Non-Af Amer) > 60 (>60) 02/27/18 01:14 Glucose 142 mg/dL (75-110) H 02/27/18 01:14 POC Glucose 159 mg/dL (70-110) H 02/27/18 16:36 Calcium 8.3 mg/dL (8.4-10.2) L 02/27/18 01:14 Magnesium 1.7 mg/dL (1.6-2.3) 02/27/18 01:14 Iron 21.5 ug/dL (37-170) L 02/28/18 05:26 TIBC 286 ug/dL (250-450) 02/28/18 05:26 % Saturation 8 % 02/28/18 05:26 Ferritin 72.90 ng/mL (11.1-264.0) 02/28/18 05:26 Total Bilirubin 1.2 mg/dL (0.2-1.3) 02/27/18 01:14 Direct Bilirubin 0.8 mg/dL (0.0-0.4) H 02/27/18 01:14 Neonat Total Bilirubin Not Reportable 02/27/18 01:14 Neonat Direct Bilirubin Not Reportable 02/27/18 01:14 Neonat Indirect Bili Not Reportable 02/27/18 01:14 AST 176 U/L (14-36) H 02/27/18 01:14 ALT 97 U/L (9-52) H 02/27/18 01:14 Alkaline Phosphatase 125 U/L (38-126) 02/27/18 01:14 Total Protein 6.9 g/dL (6.3-8.2) 02/27/18 01:14 Albumin 2.8 g/dL (3.5-5.0) L 02/27/18 01:14 Vitamin B12 832.0 pg/mL (239-931) 02/28/18 05:26 Folate > 20.00 ng/mL (>2.76) 02/28/18 05:26 TSH 3.69 uIU/mL (0.47-4.68) 02/27/18 01:14 Free T4 1.53 ng/dL (0.78-2.19) 02/27/18 01:14 Urine Color YELLOW 02/27/18 01:14 Urine Appearance SLIGHTLY-CLOUDY 02/27/18 01:14 Urine pH 6.0 (5.0-9.0) 02/27/18 01:14 Ur Specific [place] 1.006 02/27/18 01:14 Urine Protein NEGATIVE mg/dL (NEGATIVE) 02/27/18 01:14 Urine Glucose (UA) NEGATIVE mg/dL (NEGATIVE) 02/27/18 01:14 Urine Ketones NEGATIVE mg/dL (NEGATIVE) 02/27/18 01:14 Urine Blood NEGATIVE (NEGATIVE) 02/27/18 01:14 Urine Nitrite NEGATIVE (NEGATIVE) 02/27/18 01:14 Urine Bilirubin NEGATIVE (NEGATIVE) 02/27/18 01:14 Urine Urobilinogen NEGATIVE mg/dL (<2.0) 02/27/18 01:14 Ur Leukocyte Esterase SMALL (NEGATIVE) H 02/27/18 01:14 Urine WBC (Auto) 1 /HPF 02/27/18 01:14 Urine RBC (Auto) 3 /HPF 02/27/18 01:14 Urine Bacteria (Auto) TRACE /HPF 02/27/18 01:14 Squamous Epi Cells Auto 5 /HPF 02/27/18 01:14 Urine Mucus (Auto) RARE /LPF 02/27/18 01:14 Urine Ascorbic Acid NEGATIVE (NEGATIVE) 02/27/18 01:14 Stool Occult Blood POSITIVE (NEGATIVE) 02/27/18 01:45 Blood Type A POSITIVE 02/27/18 03:20 Blood Type Confirm A POSITIVE 02/27/18 03:20 Antibody Screen NEGATIVE 02/27/18 03:20 Crossmatch See Detail 02/27/18 03:20 Impressions: Abdomen Ultrasound 02/28/18 00:00 IMPRESSION: Fatty infiltration of the liver with a slightly nodular contour. No gallstones. No ductal dilatation. Qualifiers - * PATIENT BEING DISCHARGED WITH ANY OF THE FOLLOWING DIAGNOSIS: No Plan Discharge Plan: home. 5d ov and cbc. Arrange gi consult.
== END 2018-03-02 12:09 | disposition home or self-care (01) | DRG 379 ==
LOC: ER 23:34 → EH 02-27 03:15 → 3S 02-27 04:19
PROVIDERS: ADMIT Family Medicine; ATTEND Family Medicine
PROC: 30233N1 Transfusion of Nonautologous Red Blood Cells into Peripheral Vein, Percutaneous Approach (ICD-10-PCS; 2018-02-27)
PROC: 0DB78ZX Excision of Stomach, Pylorus, Via Natural or Artificial Opening Endoscopic, Diagnostic (ICD-10-PCS; principal; 2018-02-27 18:15)
PROC: 0DJD8ZZ Inspection of Lower Intestinal Tract, Via Natural or Artificial Opening Endoscopic (ICD-10-PCS; 2018-02-27 18:15)
PROC: 30233N1 Transfusion of Nonautologous Red Blood Cells into Peripheral Vein, Percutaneous Approach (ICD-10-PCS; 2018-02-28)
PROC: 30233N1 Transfusion of Nonautologous Red Blood Cells into Peripheral Vein, Percutaneous Approach (ICD-10-PCS; 2018-03-01)
DX: K92.2 Gastrointestinal hemorrhage, unspecified (principal); B18.2 Chronic viral hepatitis C; E11.9 Type 2 diabetes mellitus without complications; I10 Essential (primary) hypertension; K74.0 Hepatic fibrosis; D69.6 Thrombocytopenia, unspecified; M1A.09X0 Idiopathic chronic gout, multiple sites, without tophus (tophi); I86.4 Gastric varices; I85.00 Esophageal varices without bleeding; K64.8 Other hemorrhoids; D64.9 Anemia, unspecified; E66.9 Obesity, unspecified; K29.70 Gastritis, unspecified, without bleeding; Z79.899 Other long term (current) drug therapy; Z98.41 Cataract extraction status, right eye; Z83.3 Family history of diabetes mellitus; Z80.9 Family history of malignant neoplasm, unspecified
CPT/HCPCS: 36415; 36430; 43239; 45378; 76700; 80053; 81001; 813; 82272; 82607; 82728; 82746; 82962; 83540; 83550; 83735; 84439; 84443; 85025; 85045; 85610; 86850; 86900; 86901; 86920; 88305; 88342; 93005; 93010; 93976; 96361; 96365; 96375; 96376; 99291; J0171; J1756; J2250; J2405; J2704; J3010; J3490; J7030; J7050; P9016; S0028; S0164